=== PATIENT | male | born 1985 | race Caucasian/White ===

== ENCOUNTER 2023-03-30 23:36 | Emergency (ER) | payer MEDICAID ==
[~2023-03-30] VITALS: Ht 167.6 cm; Wt 95.3 kg
[2023-03-31 00:23] VITALS: BP 142/91; PULSE 95; RESP 17; TEMP 97.2; O2SAT 95
[2023-03-31] MEDS: KETOROLAC 30 MG/ML VIAL IM ONE (03:45)
[2023-03-31] MEDS: diazePAM 5 MG TAB PO ONE (03:45)
[2023-03-31] MEDS: ACETAMINOPHEN EXTRA STRENGTH 500 MG TAB PO ONE (03:45)
[2023-03-31] MEDS ORDERED: CYCL-711 PO (05:00)
== END 2023-03-31 05:15 | disposition home or self-care (01) ==
LOC: MED 03-31 00:01
DX: M25.512 Pain in left shoulder (principal); M54.6 Pain in thoracic spine; Z79.899 Other long term (current) drug therapy
CPT/HCPCS: 73030; 96372; 99283; J1885